=== PATIENT | male | born 1955 | race African-American/Black ===

== ENCOUNTER 2020-05-14 20:30 | Inpatient (IN) | payer OTHER ==
[~2020-05-14] VITALS: Ht 188 cm; Wt 68.7 kg
[2020-05-14] MEDS ORDERED: HYDRALAZINE 20MG/ML VIAL IV ONE (20:45)
[2020-05-14] MEDS ORDERED: PROPOFOL 10MG/ML 100ML 100 ML IV SCH (21:00)
[2020-05-14] MEDS ORDERED: LORAZEPAM 2MG/ML CPJ IV ONE (21:00)
[2020-05-14 21:03] LABS: BASOPHILS % 0.2 % (0.0-2.0); EOSINOPHILS % 0.1 % (0.0-5.0); HEMATOCRIT. 44.3 % (42.0-52.0); HEMOGLOBIN. 15.3 g/dL (14.0-18.0); LYMPHOCYTES % 8.7 % (20.0-50.0); MEAN CORPUSCULAR HEMOGLOBIN 29.5 pg (28.0-32.0); MEAN CORPUSCULAR VOLUME 85.4 fL (80.0-94.0); MEAN PLATELET VOLUME 8.4 fl (7.4-10.4); MONOCYTES % 4.8 % (2.0-8.0); NEUTROPHILS % 86.2 % (40.0-76.0); PLATELET 231 x1000/uL (130-400); RED BLOOD CELL COUNT 5.19 mill/uL (4.7-6.1); RED CELL DISTRIBUTION WIDTH 14.5 % (11.6-14.6)
[2020-05-14] MEDS ORDERED: PROPOFOL 10MG/ML 100ML 100 ML IV ONE (21:03)
[2020-05-14] MEDS ORDERED: LORAZEPAM 2MG/ML CPJ ONE (21:04)
[2020-05-14 21:10] LABS: CHLORIDE 99 mEq/L (98-107)
[2020-05-14 21:12] LABS: INR 0.9
[2020-05-14 21:14] LABS: ETHANOL BLOOD < 10 mg/dL
[2020-05-14 21:17] LABS: LDL CHOLESTEROL 243 mg/dL (5-100)
[2020-05-14] MEDS ORDERED: MANNITOL 12.5G (25%) VIAL 50ML IV NR (21:45)
[2020-05-14] MEDS ORDERED: NICARDIPINE 40MG/200ML PREMIX 200 ML IV PRN (21:45)
[2020-05-14 22:04] LABS: CLARITY URINE CLEAR (CLEAR); COLOR URINE YELLOW (YELLOW); KETONES URINE NEGATIVE (NEGATIVE); LEUKOCYTE ESTERASE URINE NEGATIVE (NEGATIVE); NITRITE URINE NEGATIVE (NEGATIVE); OCCULT BLOOD URINE 2+ (NEGATIVE); PROTEIN URINE 4+ (NEGATIVE); SPECIFIC GRAVITY URINE 1.015 (1.005-1.030); UROBILINOGEN URINE 0.2 E.U./dL (0.2-1.0)
[2020-05-14 22:14] LABS: *AMPHETAMINES SCREEN URINE NEGATIVE (NEGATIVE); *BARBITURATES SCREEN URINE NEGATIVE (NEGATIVE); *BENZODIAZEPINES SCREEN URINE NEGATIVE (NEGATIVE); *COCAINE SCREEN URINE NEGATIVE (NEGATIVE); METHADONE URINE SCREEN NEGATIVE (NEGATIVE); OPIATES URINE SCREEN NEGATIVE (NEGATIVE)
[2020-05-14 22:15] LABS: CANNABINOID URINE SCREEN PRESUMTIVE POSITIVE (NEGATIVE); PHENCYCLIDINE URINE SCREEN NEGATIVE (NEGATIVE)
[2020-05-14] MEDS ORDERED: MANNITOL 20% 62.5 ML IV SCH (22:15)
[2020-05-14] MEDS ORDERED: MORPHINE SULFATE 10 MG/ML CPJ IV ONE (22:15)
[2020-05-14 22:16] LABS: BG BASE EXCESS 3.3 mmol/L (-2.0-2.0); BG CARBOXYHEMOGLOBIN 0.5 % (0.5-1.5); BG DEOXYHEMOGLOBIN 0.4 % (0.0-5.0); BG FRACTION INSPIRED OXYGEN 100; BG HCO3 ACT 26.1 mmol/L (22.0-26.0); BG METHEMOGLOBIN 0.3 % (0.0-1.5); BG OXYGEN SATURATION 99.6 % (92.0-98.5); BG OXYHEMOGLOBIN 98.8 % (94.0-97.0); BG PCO2 34.6 mmHg (35.0-45.0); BG PH 7.495 (7.350-7.450); BG PO2 448.7 mmHg (75.0-100.0); BG SAMPLE SITE RIGHT RADIAL; BG TIDAL VOLUME(mL) 500 mL; BG TOTAL HEMOGLOBIN 16.3 g/dL (12.0-18.0); BG VENT MODE VENT - A/C; BG VENT RATE 16 set
[2020-05-14] MEDS ORDERED: LEVETIRACETAM 1000MG/100ML 100 ML IV ONE (23:00)
[2020-05-14] MEDS ORDERED: DEXAMETHASONE 4MG/ML 1ML VIAL IV ONE (23:00)
[2020-05-14] MEDS ORDERED: IOHEXOL-350 100 ML BOTTLE ONE (23:05)
[2020-05-15] VITALS (105 sets, daily range): BP systolic 106–167; BP diastolic 58–119
[2020-05-15] MEDS ORDERED: MORPHINE SULFATE 2 MG/ML CPJ (NOT FOR IM USE) IV PRN (01:00)
[2020-05-15] MEDS ORDERED: NICARDIPINE 100 MG in SODIUM CHLORIDE 0.9% 60 ML IV PRN (01:00)
[2020-05-15] MEDS ORDERED: MORPHINE SULFATE 2 MG/ML CPJ (NOT FOR IM USE) IV NR (01:15)
[2020-05-15] MEDS ORDERED: FUROSEMIDE 20MG/2ML VIAL IVP NR (01:30)
[2020-05-15] MEDS: CEFAZOLIN 1000MG PREMIX 50 ML IV SCH ×3 (02:10→18:49)
[2020-05-15] MEDS: DEXT 5%/LACTATED RINGERS 1,000 ML IV SCH ×2 (02:56→22:38)
[2020-05-15] MEDS: NICARDIPINE 100 MG in SODIUM CHLORIDE 0.9% 60 ML IV PRN ×3 (03:23→21:06)
[2020-05-15] MEDS: MORPHINE SULFATE 2 MG/ML CPJ (NOT FOR IM USE) IV PRN ×2 (03:24→22:10)
[2020-05-15] MEDS ORDERED: PROPOFOL 10MG/ML 100ML 100 ML IV PRN (04:15)
[2020-05-15] MEDS: PROPOFOL 10MG/ML 100ML 100 ML IV PRN ×3 (04:36→19:58)
[2020-05-15 04:56] LABS: HEMATOCRIT. 45.4 % (42.0-52.0); HEMOGLOBIN. 15.6 g/dL (14.0-18.0); MEAN CORPUSCULAR HEMOGLOBIN 29.2 pg (28.0-32.0); MEAN CORPUSCULAR VOLUME 85.2 fL (80.0-94.0); MEAN PLATELET VOLUME 8.7 fl (7.4-10.4); PLATELET 258 x1000/uL (130-400); RED BLOOD CELL COUNT 5.33 mill/uL (4.7-6.1)
[2020-05-15] MEDS ORDERED: GUAIFENESIN 200MG/10ML SUGAR FREE UDC PO PRN (05:30)
[2020-05-15] MEDS ORDERED: LORAZEPAM 2MG/ML CPJ IV PRN (05:30)
[2020-05-15] MEDS ORDERED: MAGNESIUM/ALUMINUM HYDROXIDE/SIMETHICONE 30ML UDC PO PRN (05:30)
[2020-05-15] MEDS ORDERED: HYDROCODONE/ACETAMINOPHEN 10/325MG TABLET PO PRN (05:30)
[2020-05-15] MEDS ORDERED: DOCUSATE SODIUM 100MG CAPSULE PO PRN (05:30)
[2020-05-15] MEDS ORDERED: SODIUM CHLORIDE 0.9% INJ 3ML FLUSH IVF SCH (06:00)
[2020-05-15 06:19] LABS: CHLORIDE 100 mEq/L (98-107)
[2020-05-15] MEDS ORDERED: KCL 20MEQ/100ML PREMIX 100 ML IV ONE (08:00)
[2020-05-15 08:20] LABS: BG BASE EXCESS 0.6 mmol/L (-2.0-2.0); BG CARBOXYHEMOGLOBIN 0.1 % (0.5-1.5); BG FRACTION INSPIRED OXYGEN 50; BG HCO3 ACT 24.3 mmol/L (22.0-26.0); BG METHEMOGLOBIN 0.7 % (0.0-1.5); BG OXYHEMOGLOBIN 98.2 % (94.0-97.0); BG PCO2 36.9 mmHg (35.0-45.0); BG PH 7.437 (7.350-7.450); BG PO2 212.2 mmHg (75.0-100.0); BG SAMPLE SITE RIGHT RADIAL; BG TIDAL VOLUME(mL) 500 mL; BG TOTAL HEMOGLOBIN 20.2 g/dL (12.0-18.0); BG VENT MODE VENT - A/C; BG VENT RATE 16 set
[2020-05-15] MEDS ORDERED: POTASSIUM CHLORIDE INJ 60 MEQ in DEXT 5% WATER 500 ML IV NR (09:00)
[2020-05-15] MEDS: LEVETIRACETAM 500MG PREMIX 100 ML IV SCH ×2 (09:15→20:10)
[2020-05-15 10:36] LABS: CREATINE KINASE MB FRACTION 2.7 ng/mL (0.5-3.6)
[2020-05-15] MEDS ORDERED: LEVETIRACETAM 500 MG in SODIUM CHLORIDE 0.9% 100 ML IV SCH (11:00)
[2020-05-15 13:39] LABS: PLATELET ESTIMATE NORMAL
[2020-05-15 17:16] LABS: CREATINE KINASE MB FRACTION 4.5 ng/mL (0.5-3.6)
[2020-05-16] VITALS (95 sets, daily range): BP systolic 101–148; BP diastolic 24–88
[2020-05-16] MEDS: CEFAZOLIN 1000MG PREMIX 50 ML IV SCH ×3 (01:15→17:32)
[2020-05-16] MEDS: PROPOFOL 10MG/ML 100ML 100 ML IV PRN ×5 (02:38→23:19)
[2020-05-16] MEDS: NICARDIPINE 100 MG in SODIUM CHLORIDE 0.9% 60 ML IV PRN ×3 (04:42→20:20)
[2020-05-16 05:52] LABS: HEMATOCRIT. 40.2 % (42.0-52.0); HEMOGLOBIN. 13.6 g/dL (14.0-18.0); MEAN CORPUSCULAR HEMOGLOBIN 29.2 pg (28.0-32.0); MEAN PLATELET VOLUME 9.4 fl (7.4-10.4); PLATELET 207 x1000/uL (130-400); RED BLOOD CELL COUNT 4.67 mill/uL (4.7-6.1)
[2020-05-16 05:55] LABS: CHLORIDE 104 mEq/L (98-107)
[2020-05-16] MEDS: LEVETIRACETAM 500MG PREMIX 100 ML IV SCH ×2 (08:46→20:20)
[2020-05-16] MEDS: PANTOPRAZOLE SODIUM 40 MG/VIAL IV SCH (08:46)
[2020-05-16 09:08] LABS: PLATELET ESTIMATE NORMAL
[2020-05-16 09:21] LABS: BG BASE EXCESS 1.5 mmol/L (-2.0-2.0); BG CARBOXYHEMOGLOBIN 0.2 % (0.5-1.5); BG DEOXYHEMOGLOBIN 2.3 % (0.0-5.0); BG FRACTION INSPIRED OXYGEN 35; BG HCO3 ACT 24.1 mmol/L (22.0-26.0); BG METHEMOGLOBIN 0.2 % (0.0-1.5); BG OXYGEN SATURATION 97.7 % (92.0-98.5); BG OXYHEMOGLOBIN 97.3 % (94.0-97.0); BG PH 7.495 (7.350-7.450); BG PO2 93.7 mmHg (75.0-100.0); BG SAMPLE SITE RIGHT RADIAL; BG TIDAL VOLUME(mL) 500 mL; BG TOTAL HEMOGLOBIN 13.6 g/dL (12.0-18.0); BG VENT MODE VENT - A/C; BG VENT RATE 14 set
[2020-05-16] MEDS: SODIUM CHLORIDE 0.9% 1,000 ML IV SCH (11:00)
[2020-05-16] MEDS: MORPHINE SULFATE 2 MG/ML CPJ (NOT FOR IM USE) IV PRN ×2 (18:55→21:07)
[2020-05-17] VITALS (99 sets, daily range): BP systolic 110–154; BP diastolic 53–88
[2020-05-17] MEDS: SODIUM CHLORIDE 0.9% 1,000 ML IV SCH ×2 (01:08→15:25)
[2020-05-17] MEDS: CEFAZOLIN 1000MG PREMIX 50 ML IV SCH ×3 (01:08→17:13)
[2020-05-17] MEDS: MORPHINE SULFATE 2 MG/ML CPJ (NOT FOR IM USE) IV PRN ×3 (01:43→06:42)
[2020-05-17] MEDS: NICARDIPINE 100 MG in SODIUM CHLORIDE 0.9% 60 ML IV PRN ×4 (03:43→23:58)
[2020-05-17] MEDS: PROPOFOL 10MG/ML 100ML 100 ML IV PRN ×5 (03:46→21:00)
[2020-05-17 04:56] LABS: BASOPHILS % 0.4 % (0.0-2.0); HEMATOCRIT. 39.7 % (42.0-52.0); HEMOGLOBIN. 13.5 g/dL (14.0-18.0); LYMPHOCYTES % 7.9 % (20.0-50.0); MEAN CORPUSCULAR HEMOGLOBIN 29.2 pg (28.0-32.0); MEAN CORPUSCULAR VOLUME 85.9 fL (80.0-94.0); MEAN PLATELET VOLUME 8.9 fl (7.4-10.4); MONOCYTES % 8.2 % (2.0-8.0); NEUTROPHILS % 83.5 % (40.0-76.0); PLATELET 199 x1000/uL (130-400); RED BLOOD CELL COUNT 4.62 mill/uL (4.7-6.1); RED CELL DISTRIBUTION WIDTH 14.6 % (11.6-14.6)
[2020-05-17 04:57] LABS: CHLORIDE 109 mEq/L (98-107)
[2020-05-17] MEDS: PANTOPRAZOLE SODIUM 40 MG/VIAL IV SCH (08:50)
[2020-05-17] MEDS: LEVETIRACETAM 500MG PREMIX 100 ML IV SCH ×2 (08:51→20:09)
[2020-05-17] MEDS ORDERED: MORPHINE SULFATE 4 MG/ML CPJ (NOT FOR IM USE) IV PRN (09:00)
[2020-05-17 09:10] LABS: BG BASE EXCESS 2.1 mmol/L (-2.0-2.0); BG CARBOXYHEMOGLOBIN 0.1 % (0.5-1.5); BG DEOXYHEMOGLOBIN 1.4 % (0.0-5.0); BG FRACTION INSPIRED OXYGEN 35; BG HCO3 ACT 26.6 mmol/L (22.0-26.0); BG METHEMOGLOBIN 0.3 % (0.0-1.5); BG OXYGEN SATURATION 98.6 % (92.0-98.5); BG OXYHEMOGLOBIN 98.2 % (94.0-97.0); BG PCO2 40.9 mmHg (35.0-45.0); BG PH 7.431 (7.350-7.450); BG PO2 134.8 mmHg (75.0-100.0); BG SAMPLE SITE LEFT RADIAL; BG TIDAL VOLUME(mL) 500 mL; BG TOTAL HEMOGLOBIN 14.1 g/dL (12.0-18.0); BG VENT MODE VENT - A/C; BG VENT RATE 14 set
[2020-05-17] MEDS: MORPHINE SULFATE 4 MG/ML CPJ (NOT FOR IM USE) IV PRN ×6 (09:12→23:55)
[2020-05-17] MEDS ORDERED: PHENYLEPHRINE 40 MG in DEXT 5% WATER 246 ML IV PRN (09:30)
[2020-05-17] MEDS ORDERED: SODIUM CHLORIDE 0.9% 500 ML IV SCH (10:30)
[2020-05-17] MEDS: IPRATROPIUM/ALBUTEROL 0.5-3(2.5)MG/3ML NEB HHN PRN ×3 (11:44→16:19)
[2020-05-17] MEDS ORDERED: MORPHINE SULFATE 2 MG/ML CPJ (NOT FOR IM USE) IV NR (14:30)
[2020-05-17] MEDS: HYDRALAZINE 20MG/ML VIAL IV PRN (14:43)
[2020-05-18] VITALS (96 sets, daily range): BP systolic 103–153; BP diastolic 60–87
[2020-05-18] MEDS: PROPOFOL 10MG/ML 100ML 100 ML IV PRN ×5 (00:25→21:31)
[2020-05-18] MEDS: CEFAZOLIN 1000MG PREMIX 50 ML IV SCH ×3 (01:14→18:21)
[2020-05-18] MEDS: MORPHINE SULFATE 4 MG/ML CPJ (NOT FOR IM USE) IV PRN ×5 (04:06→23:18)
[2020-05-18 04:51] LABS: HEMATOCRIT. 35.5 % (42.0-52.0); HEMOGLOBIN. 12.1 g/dL (14.0-18.0); MEAN CORPUSCULAR HEMOGLOBIN 29.6 pg (28.0-32.0); MEAN CORPUSCULAR VOLUME 86.3 fL (80.0-94.0); MEAN PLATELET VOLUME 8.9 fl (7.4-10.4); PLATELET 179 x1000/uL (130-400); RED BLOOD CELL COUNT 4.11 mill/uL (4.7-6.1); RED CELL DISTRIBUTION WIDTH 14.7 % (11.6-14.6)
[2020-05-18 04:54] LABS: CHLORIDE 111 mEq/L (98-107)
[2020-05-18] MEDS: NICARDIPINE 100 MG in SODIUM CHLORIDE 0.9% 60 ML IV PRN ×2 (06:48→13:08)
[2020-05-18] MEDS: LEVETIRACETAM 500MG PREMIX 100 ML IV SCH ×2 (08:17→20:11)
[2020-05-18] MEDS: SODIUM CHLORIDE 0.9% 1,000 ML IV SCH (08:17)
[2020-05-18] MEDS: PANTOPRAZOLE SODIUM 40 MG/VIAL IV SCH (08:17)
[2020-05-18 09:37] LABS: BG BASE EXCESS 0.7 mmol/L (-2.0-2.0); BG CARBOXYHEMOGLOBIN 0.3 % (0.5-1.5); BG DEOXYHEMOGLOBIN 1.9 % (0.0-5.0); BG FRACTION INSPIRED OXYGEN 35; BG HCO3 ACT 23.9 mmol/L (22.0-26.0); BG METHEMOGLOBIN 0.2 % (0.0-1.5); BG OXYGEN SATURATION 98.1 % (92.0-98.5); BG OXYHEMOGLOBIN 97.6 % (94.0-97.0); BG PCO2 33.6 mmHg (35.0-45.0); BG PO2 117.5 mmHg (75.0-100.0); BG SAMPLE SITE LEFT RADIAL; BG TIDAL VOLUME(mL) 500 mL; BG TOTAL HEMOGLOBIN 12.4 g/dL (12.0-18.0); BG VENT MODE VENT - A/C; BG VENT RATE 14 set
[2020-05-18 10:56] LABS: PLATELET ESTIMATE NORMAL
[2020-05-18] MEDS: PIPERACILLIN/TAZOBACTAM 3.375 G in DEXT 5% WATER 100 ML IV SCH ×3 (13:21→23:18)
[2020-05-18] MEDS: IPRATROPIUM/ALBUTEROL 0.5-3(2.5)MG/3ML NEB HHN PRN ×2 (19:52→19:54)
[2020-05-19] VITALS (99 sets, daily range): BP systolic 102–153; BP diastolic 19–92
[2020-05-19] MEDS: CEFAZOLIN 1000MG PREMIX 50 ML IV SCH ×3 (01:22→18:00)
[2020-05-19] MEDS: NICARDIPINE 100 MG in SODIUM CHLORIDE 0.9% 60 ML IV PRN ×3 (02:10→18:01)
[2020-05-19] MEDS: SODIUM CHLORIDE 0.9% 1,000 ML IV SCH ×3 (02:11→20:39)
[2020-05-19] MEDS: PROPOFOL 10MG/ML 100ML 100 ML IV PRN ×4 (02:12→20:40)
[2020-05-19] MEDS: MORPHINE SULFATE 4 MG/ML CPJ (NOT FOR IM USE) IV PRN ×7 (02:23→20:41)
[2020-05-19] MEDS: PIPERACILLIN/TAZOBACTAM 3.375 G in DEXT 5% WATER 100 ML IV SCH ×4 (05:18→23:15)
[2020-05-19 05:25] LABS: BASOPHILS % 0.4 % (0.0-2.0); HEMATOCRIT. 37.3 % (42.0-52.0); HEMOGLOBIN. 12.8 g/dL (14.0-18.0); LYMPHOCYTES % 7.3 % (20.0-50.0); MEAN CORPUSCULAR HEMOGLOBIN 29.7 pg (28.0-32.0); MEAN CORPUSCULAR VOLUME 86.5 fL (80.0-94.0); MEAN PLATELET VOLUME 8.8 fl (7.4-10.4); MONOCYTES % 9.2 % (2.0-8.0); NEUTROPHILS % 83.1 % (40.0-76.0); PLATELET 169 x1000/uL (130-400); RED BLOOD CELL COUNT 4.31 mill/uL (4.7-6.1); RED CELL DISTRIBUTION WIDTH 14.8 % (11.6-14.6)
[2020-05-19 05:30] LABS: CHLORIDE 113 mEq/L (98-107)
[2020-05-19 07:57] LABS: BG BASE EXCESS -1.4 mmol/L (-2.0-2.0); BG CARBOXYHEMOGLOBIN 0.3 % (0.5-1.5); BG DEOXYHEMOGLOBIN 3.2 % (0.0-5.0); BG FRACTION INSPIRED OXYGEN 35; BG HCO3 ACT 22.5 mmol/L (22.0-26.0); BG METHEMOGLOBIN 0.2 % (0.0-1.5); BG OXYGEN SATURATION 96.8 % (92.0-98.5); BG OXYHEMOGLOBIN 96.3 % (94.0-97.0); BG PCO2 35.1 mmHg (35.0-45.0); BG PH 7.425 (7.350-7.450); BG PO2 90.5 mmHg (75.0-100.0); BG SAMPLE SITE RIGHT RADIAL; BG TIDAL VOLUME(mL) 500 mL; BG TOTAL HEMOGLOBIN 12.3 g/dL (12.0-18.0); BG VENT MODE VENT - A/C; BG VENT RATE 12 set
[2020-05-19] MEDS: LEVETIRACETAM 500MG PREMIX 100 ML IV SCH ×2 (08:12→20:15)
[2020-05-19] MEDS: PANTOPRAZOLE SODIUM 40 MG/VIAL IV SCH (08:12)
[2020-05-19] MEDS ORDERED: KCL 20MEQ/100ML PREMIX 100 ML IV NR (10:00)
[2020-05-19] MEDS: IPRATROPIUM/ALBUTEROL 0.5-3(2.5)MG/3ML NEB HHN PRN (21:00)
[2020-05-19] MEDS: HYDRALAZINE 20MG/ML VIAL IV PRN (23:27)
[2020-05-20] VITALS (100 sets, daily range): BP systolic 103–202; BP diastolic 51–136
[2020-05-20] MEDS: MORPHINE SULFATE 4 MG/ML CPJ (NOT FOR IM USE) IV PRN ×6 (00:24→21:26)
[2020-05-20] MEDS ORDERED: ACETAMINOPHEN 650MG SUPP PR PRN (00:45)
[2020-05-20] MEDS: CEFAZOLIN 1000MG PREMIX 50 ML IV SCH (01:14)
[2020-05-20] MEDS: NICARDIPINE 100 MG in SODIUM CHLORIDE 0.9% 60 ML IV PRN ×2 (01:19→10:19)
[2020-05-20] MEDS: PROPOFOL 10MG/ML 100ML 100 ML IV PRN ×5 (01:21→19:13)
[2020-05-20] MEDS: IPRATROPIUM/ALBUTEROL 0.5-3(2.5)MG/3ML NEB HHN PRN ×2 (04:31→08:51)
[2020-05-20 05:30] LABS: BASOPHILS % 0.6 % (0.0-2.0); EOSINOPHILS % 0.1 % (0.0-5.0); HEMATOCRIT. 36.8 % (42.0-52.0); HEMOGLOBIN. 12.5 g/dL (14.0-18.0); LYMPHOCYTES % 9.5 % (20.0-50.0); MEAN CORPUSCULAR HEMOGLOBIN 29.6 pg (28.0-32.0); MEAN CORPUSCULAR VOLUME 86.9 fL (80.0-94.0); MEAN PLATELET VOLUME 9.3 fl (7.4-10.4); MONOCYTES % 10.5 % (2.0-8.0); NEUTROPHILS % 79.3 % (40.0-76.0); PLATELET 161 x1000/uL (130-400); RED BLOOD CELL COUNT 4.23 mill/uL (4.7-6.1); RED CELL DISTRIBUTION WIDTH 14.5 % (11.6-14.6)
[2020-05-20 05:38] LABS: CHLORIDE 115 mEq/L (98-107)
[2020-05-20] MEDS: PIPERACILLIN/TAZOBACTAM 3.375 G in DEXT 5% WATER 100 ML IV SCH ×4 (05:55→23:55)
[2020-05-20] MEDS: LEVETIRACETAM 500MG PREMIX 100 ML IV SCH ×2 (08:50→20:36)
[2020-05-20] MEDS: PANTOPRAZOLE SODIUM 40 MG/VIAL IV SCH (08:50)
[2020-05-20] MEDS: HYDRALAZINE 20MG/ML VIAL IV PRN ×2 (09:19→14:16)
[2020-05-20] MEDS ORDERED: POTASSIUM CHLORIDE INJ 40 MEQ in DEXT 5% WATER 250 ML IV NR (11:00)
[2020-05-20] MEDS ORDERED: MORPHINE SULFATE 2 MG/ML CPJ (NOT FOR IM USE) IV NR (13:15)
[2020-05-20] MEDS: SODIUM CHLORIDE 0.9% 1,000 ML IV SCH (13:30)
[2020-05-20] MEDS: ATORVASTATIN CALCIUM 40MG TABLET PO SCH (20:36)
[2020-05-21] VITALS (98 sets, daily range): BP systolic 111–158; BP diastolic 56–95
[2020-05-21] MEDS: PROPOFOL 10MG/ML 100ML 100 ML IV PRN ×7 (00:09→22:58)
[2020-05-21] MEDS: NICARDIPINE 100 MG in SODIUM CHLORIDE 0.9% 60 ML IV PRN ×4 (01:15→22:40)
[2020-05-21] MEDS: MORPHINE SULFATE 4 MG/ML CPJ (NOT FOR IM USE) IV PRN ×7 (02:17→20:56)
[2020-05-21] MEDS: HYDRALAZINE 20MG/ML VIAL IV PRN ×4 (03:27→22:25)
[2020-05-21] MEDS: SODIUM CHLORIDE 0.9% 1,000 ML IV SCH ×2 (05:00→15:05)
[2020-05-21 05:31] LABS: BASOPHILS % 0.8 % (0.0-2.0); EOSINOPHILS % 0.1 % (0.0-5.0); HEMOGLOBIN. 12.4 g/dL (14.0-18.0); LYMPHOCYTES % 9.6 % (20.0-50.0); MEAN CORPUSCULAR HEMOGLOBIN 29.7 pg (28.0-32.0); MEAN CORPUSCULAR VOLUME 86.3 fL (80.0-94.0); MEAN PLATELET VOLUME 8.9 fl (7.4-10.4); MONOCYTES % 9.4 % (2.0-8.0); NEUTROPHILS % 80.1 % (40.0-76.0); PLATELET 166 x1000/uL (130-400); RED BLOOD CELL COUNT 4.17 mill/uL (4.7-6.1); RED CELL DISTRIBUTION WIDTH 14.4 % (11.6-14.6)
[2020-05-21 05:35] LABS: CHLORIDE 118 mEq/L (98-107)
[2020-05-21] MEDS: PIPERACILLIN/TAZOBACTAM 3.375 G in DEXT 5% WATER 100 ML IV SCH ×3 (05:39→16:44)
[2020-05-21 07:28] LABS: BG BASE EXCESS -2.4 mmol/L (-2.0-2.0); BG CARBOXYHEMOGLOBIN 0.3 % (0.5-1.5); BG DEOXYHEMOGLOBIN 2.1 % (0.0-5.0); BG FRACTION INSPIRED OXYGEN 50; BG HCO3 ACT 20.7 mmol/L (22.0-26.0); BG METHEMOGLOBIN 0.2 % (0.0-1.5); BG OXYGEN SATURATION 97.9 % (92.0-98.5); BG OXYHEMOGLOBIN 97.4 % (94.0-97.0); BG PCO2 30.4 mmHg (35.0-45.0); BG PO2 109.2 mmHg (75.0-100.0); BG SAMPLE SITE RIGHT RADIAL; BG TIDAL VOLUME(mL) 500 mL; BG TOTAL HEMOGLOBIN 12.6 g/dL (12.0-18.0); BG VENT MODE VENT - A/C; BG VENT RATE 12 set
[2020-05-21] MEDS: IPRATROPIUM/ALBUTEROL 0.5-3(2.5)MG/3ML NEB HHN PRN ×2 (08:17→16:12)
[2020-05-21] MEDS: PANTOPRAZOLE SODIUM 40 MG/VIAL IV SCH (08:37)
[2020-05-21] MEDS: LEVETIRACETAM 500MG PREMIX 100 ML IV SCH ×2 (08:38→20:55)
[2020-05-21] MEDS ORDERED: METOPROLOL TARTRATE 50MG TABLET PO SCH (11:30)
[2020-05-21] MEDS: METOPROLOL TARTRATE 50MG TABLET NG SCH ×2 (11:57→20:55)
[2020-05-21] MEDS: DEXTROSE 5% WATER 1,000 ML IV SCH (16:23)
[2020-05-21] MEDS: ATORVASTATIN CALCIUM 40MG TABLET PO SCH (20:55)
[2020-05-22] VITALS (96 sets, daily range): BP systolic 106–161; BP diastolic 65–92
[2020-05-22] MEDS: PIPERACILLIN/TAZOBACTAM 3.375 G in DEXT 5% WATER 100 ML IV SCH ×4 (00:06→17:15)
[2020-05-22] MEDS: MORPHINE SULFATE 4 MG/ML CPJ (NOT FOR IM USE) IV PRN ×2 (01:45→06:09)
[2020-05-22] MEDS: HYDRALAZINE 20MG/ML VIAL IV PRN ×2 (02:27→09:08)
[2020-05-22] MEDS: PROPOFOL 10MG/ML 100ML 100 ML IV PRN ×4 (04:05→23:11)
[2020-05-22] MEDS: NICARDIPINE 100 MG in SODIUM CHLORIDE 0.9% 60 ML IV PRN ×3 (05:59→20:07)
[2020-05-22] MEDS: LEVETIRACETAM 500MG PREMIX 100 ML IV SCH ×2 (08:20→20:06)
[2020-05-22] MEDS: PANTOPRAZOLE SODIUM 40 MG/VIAL IV SCH (08:20)
[2020-05-22] MEDS: METOPROLOL TARTRATE 50MG TABLET NG SCH ×2 (08:21→20:06)
[2020-05-22] MEDS: DEXTROSE 5% WATER 1,000 ML IV SCH (08:25)
[2020-05-22] MEDS ORDERED: DOCUSATE SODIUM SUGAR FREE 100MG/10ML UDC NG SCH (09:00)
[2020-05-22] MEDS: SODIUM CHLORIDE 0.45% 1,000 ML IV SCH (11:37)
[2020-05-22] MEDS ORDERED: AMLODIPINE 5MG TABLET PO SCH (11:45)
[2020-05-22] MEDS: AMLODIPINE 5MG TABLET PO SCH ×2 (11:53→20:06)
[2020-05-22] MEDS: ACETAMINOPHEN 325MG TABLET PO PRN (20:06)
[2020-05-22] MEDS: ATORVASTATIN CALCIUM 40MG TABLET PO SCH (20:06)
[2020-05-23] VITALS (96 sets, daily range): BP systolic 119–180; BP diastolic 58–119
[2020-05-23] MEDS: PIPERACILLIN/TAZOBACTAM 3.375 G in DEXT 5% WATER 100 ML IV SCH ×4 (00:51→17:46)
[2020-05-23] MEDS: SODIUM CHLORIDE 0.45% 1,000 ML IV SCH ×2 (00:51→14:05)
[2020-05-23] MEDS: PROPOFOL 10MG/ML 100ML 100 ML IV PRN ×5 (03:00→20:13)
[2020-05-23] MEDS: NICARDIPINE 100 MG in SODIUM CHLORIDE 0.9% 60 ML IV PRN ×3 (03:29→20:14)
[2020-05-23 05:36] LABS: BASOPHILS % 0.6 % (0.0-2.0); EOSINOPHILS % 0.2 % (0.0-5.0); HEMATOCRIT. 36.2 % (42.0-52.0); HEMOGLOBIN. 12.5 g/dL (14.0-18.0); LYMPHOCYTES % 8.6 % (20.0-50.0); MEAN CORPUSCULAR HEMOGLOBIN 29.5 pg (28.0-32.0); MEAN CORPUSCULAR VOLUME 85.5 fL (80.0-94.0); MEAN PLATELET VOLUME 9.7 fl (7.4-10.4); MONOCYTES % 11.4 % (2.0-8.0); NEUTROPHILS % 79.2 % (40.0-76.0); PLATELET 164 x1000/uL (130-400); RED BLOOD CELL COUNT 4.24 mill/uL (4.7-6.1); RED CELL DISTRIBUTION WIDTH 14.3 % (11.6-14.6)
[2020-05-23 05:40] LABS: CHLORIDE 116 mEq/L (98-107)
[2020-05-23] MEDS: HYDRALAZINE 20MG/ML VIAL IV PRN (06:32)
[2020-05-23] MEDS: MORPHINE SULFATE 4 MG/ML CPJ (NOT FOR IM USE) IV PRN (07:57)
[2020-05-23 08:42] LABS: BG BASE EXCESS -0.4 mmol/L (-2.0-2.0); BG CARBOXYHEMOGLOBIN 0.3 % (0.5-1.5); BG DEOXYHEMOGLOBIN 9.6 % (0.0-5.0); BG FRACTION INSPIRED OXYGEN 40; BG METHEMOGLOBIN 0.3 % (0.0-1.5); BG OXYGEN SATURATION 90.3 % (92.0-98.5); BG OXYHEMOGLOBIN 89.8 % (94.0-97.0); BG PH 7.526 (7.350-7.450); BG PO2 52.5 mmHg (75.0-100.0); BG SAMPLE SITE RIGHT RADIAL; BG TIDAL VOLUME(mL) 500 mL; BG VENT MODE VENT - A/C; BG VENT RATE 12 set
[2020-05-23] MEDS: DOCUSATE SODIUM SUGAR FREE 100MG/10ML UDC NG SCH (09:30)
[2020-05-23] MEDS: AMLODIPINE 5MG TABLET PO SCH ×2 (09:31→20:18)
[2020-05-23] MEDS: PANTOPRAZOLE SODIUM 40 MG/VIAL IV SCH (09:32)
[2020-05-23] MEDS: LEVETIRACETAM 500MG PREMIX 100 ML IV SCH ×2 (09:32→20:16)
[2020-05-23] MEDS: METOPROLOL TARTRATE 50MG TABLET NG SCH ×2 (09:32→20:19)
[2020-05-23] MEDS: ATORVASTATIN CALCIUM 40MG TABLET PO SCH (20:18)
[2020-05-24] VITALS (91 sets, daily range): BP systolic 100–160; BP diastolic 67–97
[2020-05-24] MEDS: PROPOFOL 10MG/ML 100ML 100 ML IV PRN ×5 (00:50→19:08)
[2020-05-24] MEDS: NICARDIPINE 100 MG in SODIUM CHLORIDE 0.9% 60 ML IV PRN ×3 (04:17→19:05)
[2020-05-24] MEDS: SODIUM CHLORIDE 0.45% 1,000 ML IV SCH ×2 (05:00→16:35)
[2020-05-24] MEDS: IPRATROPIUM/ALBUTEROL 0.5-3(2.5)MG/3ML NEB HHN PRN (08:10)
[2020-05-24] MEDS: AMLODIPINE 5MG TABLET PO SCH (08:24)
[2020-05-24] MEDS: METOPROLOL TARTRATE 50MG TABLET NG SCH ×2 (08:24→21:27)
[2020-05-24] MEDS: DOCUSATE SODIUM SUGAR FREE 100MG/10ML UDC NG SCH (08:24)
[2020-05-24] MEDS: LEVETIRACETAM 500MG PREMIX 100 ML IV SCH ×2 (08:25→21:26)
[2020-05-24] MEDS ORDERED: FOLIC ACID 1MG TABLET PO SCH (09:00)
[2020-05-24] MEDS ORDERED: THIAMINE HCL 100MG TABLET PO SCH (09:00)
[2020-05-24] MEDS ORDERED: MAGNESIUM/ALUMINUM HYDROXIDE/SIMETHICONE 30ML UDC NG PRN (09:05)
[2020-05-24] MEDS ORDERED: GUAIFENESIN 200MG/10ML SUGAR FREE UDC NG PRN (09:05)
[2020-05-24] MEDS ORDERED: POTASSIUM CHLORIDE INJ 40 MEQ in DEXT 5% WATER 250 ML IV SCH (14:00)
[2020-05-24 17:38] LABS: BG BASE EXCESS -0.1 mmol/L (-2.0-2.0); BG CARBOXYHEMOGLOBIN 0.3 % (0.5-1.5); BG METHEMOGLOBIN 0.2 % (0.0-1.5); BG OXYHEMOGLOBIN 93.5 % (94.0-97.0); BG PCO2 28.5 mmHg (35.0-45.0); BG PH 7.505 (7.350-7.450); BG PO2 67.6 mmHg (75.0-100.0); BG SAMPLE SITE RIGHT RADIAL; BG TIDAL VOLUME(mL) 500 mL; BG TOTAL HEMOGLOBIN 12.9 g/dL (12.0-18.0); BG VENT MODE VENT - A/C; BG VENT RATE 12 set
[2020-05-24] MEDS: ATORVASTATIN CALCIUM 40MG TABLET NG SCH (21:26)
[2020-05-24] MEDS: RISPERIDONE 0.5MG TABLET PO SCH (21:26)
[2020-05-24] MEDS: MORPHINE SULFATE 4 MG/ML CPJ (NOT FOR IM USE) IV PRN (21:37)
[2020-05-24] MEDS: AMLODIPINE 5MG TABLET NG SCH (21:40)
[2020-05-25] VITALS (85 sets, daily range): BP systolic 109–174; BP diastolic 70–117
[2020-05-25] MEDS: PROPOFOL 10MG/ML 100ML 100 ML IV PRN ×2 (00:23→04:50)
[2020-05-25] MEDS: NICARDIPINE 100 MG in SODIUM CHLORIDE 0.9% 60 ML IV PRN ×3 (02:32→16:31)
[2020-05-25] MEDS: SODIUM CHLORIDE 0.45% 1,000 ML IV SCH ×2 (03:47→17:14)
[2020-05-25] MEDS: DOCUSATE SODIUM SUGAR FREE 100MG/10ML UDC NG SCH (08:11)
[2020-05-25] MEDS: METOPROLOL TARTRATE 50MG TABLET NG SCH ×2 (08:12→21:23)
[2020-05-25] MEDS: RISPERIDONE 0.5MG TABLET PO SCH ×2 (08:12→21:24)
[2020-05-25] MEDS: FOLIC ACID 1MG TABLET NG SCH (08:12)
[2020-05-25] MEDS: THIAMINE HCL 100MG TABLET NG SCH (08:12)
[2020-05-25] MEDS: AMLODIPINE 5MG TABLET NG SCH (08:13)
[2020-05-25] MEDS: LEVETIRACETAM 500MG PREMIX 100 ML IV SCH ×2 (08:13→21:23)
[2020-05-25] MEDS ORDERED: AMLODIPINE 5MG TABLET PO NR (08:45)
[2020-05-25 08:49] LABS: BG BASE EXCESS -0.3 mmol/L (-2.0-2.0); BG CARBOXYHEMOGLOBIN 0.3 % (0.5-1.5); BG DEOXYHEMOGLOBIN 5.6 % (0.0-5.0); BG FRACTION INSPIRED OXYGEN 40; BG HCO3 ACT 21.6 mmol/L (22.0-26.0); BG METHEMOGLOBIN 0.2 % (0.0-1.5); BG OXYGEN SATURATION 94.4 % (92.0-98.5); BG OXYHEMOGLOBIN 93.9 % (94.0-97.0); BG PCO2 27.5 mmHg (35.0-45.0); BG PH 7.512 (7.350-7.450); BG SAMPLE SITE RIGHT RADIAL; BG TIDAL VOLUME(mL) 500 mL; BG TOTAL HEMOGLOBIN 12.4 g/dL (12.0-18.0); BG VENT MODE VENT - A/C; BG VENT RATE 12 set
[2020-05-25] MEDS: MORPHINE SULFATE 4 MG/ML CPJ (NOT FOR IM USE) IV PRN ×2 (09:54→18:07)
[2020-05-25 11:10] LABS: HEMATOCRIT. 33.6 % (42.0-52.0); HEMOGLOBIN. 11.4 g/dL (14.0-18.0); MEAN CORPUSCULAR HEMOGLOBIN 28.9 pg (28.0-32.0); MEAN CORPUSCULAR VOLUME 84.9 fL (80.0-94.0); MEAN PLATELET VOLUME 10.8 fl (7.4-10.4); PLATELET 191 x1000/uL (130-400); RED BLOOD CELL COUNT 3.95 mill/uL (4.7-6.1); RED CELL DISTRIBUTION WIDTH 14.3 % (11.6-14.6)
[2020-05-25 11:19] LABS: BG BASE EXCESS -2.8 mmol/L (-2.0-2.0); BG CARBOXYHEMOGLOBIN 0.3 % (0.5-1.5); BG DEOXYHEMOGLOBIN 4.8 % (0.0-5.0); BG FRACTION INSPIRED OXYGEN 40; BG HCO3 ACT 19.2 mmol/L (22.0-26.0); BG METHEMOGLOBIN 0.2 % (0.0-1.5); BG OXYGEN SATURATION 95.2 % (92.0-98.5); BG OXYHEMOGLOBIN 94.7 % (94.0-97.0); BG PCO2 24.9 mmHg (35.0-45.0); BG PH 7.505 (7.350-7.450); BG PO2 73.7 mmHg (75.0-100.0); BG PRESSURE SUPPORT 8; BG SAMPLE SITE RIGHT RADIAL; BG TOTAL HEMOGLOBIN 10.3 g/dL (12.0-18.0); BG VENT MODE MASK - CPAP
[2020-05-25 11:38] LABS: CHLORIDE 111 mEq/L (98-107)
[2020-05-25 11:44] LABS: PLATELET ESTIMATE NORMAL
[2020-05-25] MEDS ORDERED: POTASSIUM CHLORIDE 20MEQ TABLET SR PO NR (12:00)
[2020-05-25] MEDS: LORAZEPAM 2MG/ML CPJ IV PRN (14:38)
[2020-05-25] MEDS: HYDRALAZINE 20MG/ML VIAL IV PRN (15:45)
[2020-05-25] MEDS ORDERED: AMLODIPINE 10MG TABLET NG SCH (21:00)
[2020-05-25] MEDS: AMLODIPINE 10MG TABLET NG SCH (21:23)
[2020-05-25] MEDS: ATORVASTATIN CALCIUM 40MG TABLET NG SCH (21:23)
[2020-05-25] MEDS: DIPHENHYDRAMINE 50MG/ML VIAL IV PRN (23:15)
[2020-05-26] VITALS (86 sets, daily range): BP systolic 99–177; BP diastolic 59–96
[2020-05-26] MEDS: NICARDIPINE 100 MG in SODIUM CHLORIDE 0.9% 60 ML IV PRN ×3 (00:16→15:30)
[2020-05-26] MEDS: ACETAMINOPHEN 325MG TABLET PO PRN (04:37)
[2020-05-26] MEDS: HYDRALAZINE 20MG/ML VIAL IV PRN (05:30)
[2020-05-26 06:38] LABS: HEMATOCRIT. 32.3 % (42.0-52.0); MEAN CORPUSCULAR HEMOGLOBIN 29.1 pg (28.0-32.0); MEAN CORPUSCULAR VOLUME 85.1 fL (80.0-94.0); MEAN PLATELET VOLUME 10.6 fl (7.4-10.4); PLATELET 200 x1000/uL (130-400); RED CELL DISTRIBUTION WIDTH 14.1 % (11.6-14.6)
[2020-05-26 06:44] LABS: CHLORIDE 111 mEq/L (98-107)
[2020-05-26] MEDS: LORAZEPAM 2MG/ML CPJ IV PRN (07:33)
[2020-05-26] MEDS ORDERED: POTASSIUM CHLORIDE 20MEQ TABLET SR PO SCH ×2 (09:15→16:00)
[2020-05-26] MEDS: LEVETIRACETAM 500MG PREMIX 100 ML IV SCH (09:22)
[2020-05-26] MEDS: SODIUM CHLORIDE 0.45% 1,000 ML IV SCH ×2 (09:23→21:07)
[2020-05-26] MEDS: FOLIC ACID 1MG TABLET NG SCH (09:24)
[2020-05-26] MEDS: DOCUSATE SODIUM SUGAR FREE 100MG/10ML UDC NG SCH (09:24)
[2020-05-26] MEDS: METOPROLOL TARTRATE 50MG TABLET NG SCH (09:25)
[2020-05-26] MEDS: AMLODIPINE 10MG TABLET NG SCH ×2 (09:26→21:06)
[2020-05-26] MEDS: RISPERIDONE 0.5MG TABLET PO SCH ×2 (09:26→21:05)
[2020-05-26] MEDS: THIAMINE HCL 100MG TABLET NG SCH (09:26)
[2020-05-26 10:57] LABS: PLATELET ESTIMATE NORMAL
[2020-05-26] MEDS: METOPROLOL TARTRATE 100MG TABLET NG SCH ×2 (16:43→21:06)
[2020-05-26] MEDS: LISINOPRIL 10MG TABLET PO SCH ×2 (16:43→21:07)
[2020-05-26] MEDS: ATORVASTATIN CALCIUM 40MG TABLET NG SCH (21:06)
[2020-05-26] MEDS: LEVETIRACETAM 500MG TABLET PO SCH (21:06)
[2020-05-27] VITALS (48 sets, daily range): BP systolic 119–181; BP diastolic 70–130
[2020-05-27 06:47] LABS: HEMOGLOBIN. 12.1 g/dL (14.0-18.0); MEAN CORPUSCULAR HEMOGLOBIN 30.2 pg (28.0-32.0); MEAN CORPUSCULAR VOLUME 85.2 fL (80.0-94.0); MEAN PLATELET VOLUME 10.6 fl (7.4-10.4); PLATELET 237 x1000/uL (130-400); RED BLOOD CELL COUNT 3.99 mill/uL (4.7-6.1); RED CELL DISTRIBUTION WIDTH 14.1 % (11.6-14.6)
[2020-05-27 06:49] LABS: CHLORIDE 111 mEq/L (98-107)
[2020-05-27] MEDS: RISPERIDONE 0.5MG TABLET PO SCH ×2 (08:37→20:24)
[2020-05-27] MEDS: FOLIC ACID 1MG TABLET NG SCH (08:38)
[2020-05-27] MEDS: AMLODIPINE 10MG TABLET NG SCH ×2 (08:38→20:24)
[2020-05-27] MEDS: LEVETIRACETAM 500MG TABLET PO SCH ×2 (08:38→20:24)
[2020-05-27] MEDS: LISINOPRIL 10MG TABLET PO SCH ×2 (08:38→20:24)
[2020-05-27] MEDS: METOPROLOL TARTRATE 100MG TABLET NG SCH ×2 (08:38→20:24)
[2020-05-27] MEDS: DOCUSATE SODIUM SUGAR FREE 100MG/10ML UDC NG SCH (08:39)
[2020-05-27 09:08] LABS: PLATELET ESTIMATE NORMAL
[2020-05-27] MEDS: SODIUM CHLORIDE 0.45% 1,000 ML IV SCH ×2 (12:07→13:05)
[2020-05-27] MEDS: ATORVASTATIN CALCIUM 40MG TABLET NG SCH (20:24)
[2020-05-28] VITALS (35 sets, daily range): BP systolic 120–180; BP diastolic 74–127
[2020-05-28] MEDS: SODIUM CHLORIDE 0.45% 1,000 ML IV SCH ×2 (00:06→12:57)
[2020-05-28] MEDS: DIPHENHYDRAMINE 50MG/ML VIAL IV PRN (01:12)
[2020-05-28] MEDS: LORAZEPAM 2MG/ML CPJ IV PRN (03:10)
[2020-05-28 06:54] LABS: CHLORIDE 107 mEq/L (98-107)
[2020-05-28 06:59] LABS: BASOPHILS % 0.6 % (0.0-2.0); EOSINOPHILS % 0.4 % (0.0-5.0); HEMATOCRIT. 33.2 % (42.0-52.0); HEMOGLOBIN. 11.3 g/dL (14.0-18.0); LYMPHOCYTES % 7.5 % (20.0-50.0); MEAN CORPUSCULAR HEMOGLOBIN 29.3 pg (28.0-32.0); MEAN CORPUSCULAR VOLUME 85.7 fL (80.0-94.0); MEAN PLATELET VOLUME 10.4 fl (7.4-10.4); NEUTROPHILS % 80.5 % (40.0-76.0); PLATELET 274 x1000/uL (130-400); RED BLOOD CELL COUNT 3.88 mill/uL (4.7-6.1); RED CELL DISTRIBUTION WIDTH 13.8 % (11.6-14.6)
[2020-05-28] MEDS: DOCUSATE SODIUM SUGAR FREE 100MG/10ML UDC NG SCH (09:36)
[2020-05-28] MEDS: LEVETIRACETAM 500MG TABLET PO SCH ×2 (09:36→20:17)
[2020-05-28] MEDS: RISPERIDONE 0.5MG TABLET PO SCH ×2 (09:37→20:16)
[2020-05-28] MEDS: LISINOPRIL 10MG TABLET PO SCH ×2 (09:37→21:00)
[2020-05-28] MEDS: AMLODIPINE 10MG TABLET NG SCH ×2 (09:37→20:16)
[2020-05-28] MEDS: METOPROLOL TARTRATE 100MG TABLET NG SCH ×2 (09:37→20:17)
[2020-05-28] MEDS: IPRATROPIUM/ALBUTEROL 0.5-3(2.5)MG/3ML NEB HHN PRN (09:58)
[2020-05-28] MEDS ORDERED: POTASSIUM CHLORIDE 20MEQ TABLET SR PO NR (10:00)
[2020-05-28] MEDS ORDERED: POTASSIUM CHLORIDE INJ 40 MEQ in DEXT 5% WATER 250 ML IV SCH (12:00)
[2020-05-28] MEDS: ATORVASTATIN CALCIUM 40MG TABLET NG SCH (20:17)
[2020-05-29] VITALS (12 sets, daily range): BP systolic 123–150; BP diastolic 82–104
[2020-05-29] MEDS: LORAZEPAM 2MG/ML CPJ IV PRN ×2 (02:06→13:23)
[2020-05-29 06:03] LABS: CHLORIDE 108 mEq/L (98-107)
[2020-05-29 06:08] LABS: BASOPHILS % 0.5 % (0.0-2.0); EOSINOPHILS % 0.6 % (0.0-5.0); HEMATOCRIT. 33.5 % (42.0-52.0); HEMOGLOBIN. 11.4 g/dL (14.0-18.0); LYMPHOCYTES % 9.3 % (20.0-50.0); MEAN CORPUSCULAR HEMOGLOBIN 28.9 pg (28.0-32.0); MEAN CORPUSCULAR VOLUME 84.5 fL (80.0-94.0); MEAN PLATELET VOLUME 10.2 fl (7.4-10.4); MONOCYTES % 10.7 % (2.0-8.0); NEUTROPHILS % 78.9 % (40.0-76.0); PLATELET 316 x1000/uL (130-400); RED BLOOD CELL COUNT 3.96 mill/uL (4.7-6.1); RED CELL DISTRIBUTION WIDTH 13.8 % (11.6-14.6)
[2020-05-29] MEDS: AMLODIPINE 10MG TABLET NG SCH ×2 (08:51→20:55)
[2020-05-29] MEDS: LEVETIRACETAM 500MG TABLET PO SCH ×2 (08:51→20:54)
[2020-05-29] MEDS: RISPERIDONE 0.5MG TABLET PO SCH ×2 (08:51→20:55)
[2020-05-29] MEDS: METOPROLOL TARTRATE 100MG TABLET NG SCH ×2 (08:51→20:56)
[2020-05-29] MEDS: DOCUSATE SODIUM SUGAR FREE 100MG/10ML UDC NG SCH (08:52)
[2020-05-29] MEDS: LISINOPRIL 10MG TABLET PO SCH ×2 (08:52→20:55)
[2020-05-29] MEDS ORDERED: POTASSIUM CHLORIDE 20MEQ TABLET SR PO NR (09:30)
[2020-05-29] MEDS ORDERED: KCL 20MEQ/100ML PREMIX 100 ML IV NR (10:30)
[2020-05-29] MEDS: SODIUM CHLORIDE 0.45% 1,000 ML IV SCH ×2 (16:27→16:33)
[2020-05-29] MEDS: ATORVASTATIN CALCIUM 40MG TABLET NG SCH (20:55)
[2020-05-29] MEDS: DIPHENHYDRAMINE 50MG/ML VIAL IV PRN (22:01)
[2020-05-30] VITALS (12 sets, daily range): BP systolic 122–158; BP diastolic 66–112
[2020-05-30 06:25] LABS: BASOPHILS % 0.4 % (0.0-2.0); EOSINOPHILS % 0.5 % (0.0-5.0); HEMOGLOBIN. 10.9 g/dL (14.0-18.0); LYMPHOCYTES % 9.2 % (20.0-50.0); MEAN CORPUSCULAR HEMOGLOBIN 29.1 pg (28.0-32.0); MEAN CORPUSCULAR VOLUME 85.5 fL (80.0-94.0); MEAN PLATELET VOLUME 9.8 fl (7.4-10.4); MONOCYTES % 10.7 % (2.0-8.0); NEUTROPHILS % 79.2 % (40.0-76.0); PLATELET 359 x1000/uL (130-400); RED BLOOD CELL COUNT 3.74 mill/uL (4.7-6.1); RED CELL DISTRIBUTION WIDTH 13.9 % (11.6-14.6)
[2020-05-30] MEDS: DIPHENHYDRAMINE 50MG/ML VIAL IV PRN ×2 (06:29→22:12)
[2020-05-30] MEDS: ONDANSETRON HCL 4MG/2ML INJ IV PRN ×2 (06:29→22:13)
[2020-05-30 06:37] LABS: CHLORIDE 106 mEq/L (98-107)
[2020-05-30] MEDS: AMLODIPINE 10MG TABLET NG SCH ×2 (08:41→21:00)
[2020-05-30] MEDS: RISPERIDONE 0.5MG TABLET PO SCH ×2 (08:41→21:00)
[2020-05-30] MEDS: LEVETIRACETAM 500MG TABLET PO SCH ×2 (08:42→21:00)
[2020-05-30] MEDS: LISINOPRIL 10MG TABLET PO SCH ×2 (08:42→21:00)
[2020-05-30] MEDS: METOPROLOL TARTRATE 100MG TABLET NG SCH ×2 (08:42→21:00)
[2020-05-30] MEDS: SODIUM CHLORIDE 0.45% 1,000 ML IV SCH ×2 (08:44→19:15)
[2020-05-30] MEDS: DOCUSATE SODIUM SUGAR FREE 100MG/10ML UDC NG SCH (12:48)
[2020-05-30] MEDS: ACETAMINOPHEN 325MG TABLET PO PRN (13:58)
[2020-05-30] MEDS: ATORVASTATIN CALCIUM 40MG TABLET NG SCH (21:00)
[2020-05-30] MEDS: HALOPERIDOL LACTATE 5MG/ML VIAL IM PRN (22:40)
[2020-05-31] VITALS (13 sets, daily range): BP systolic 119–151; BP diastolic 69–98
[2020-05-31] MEDS: SODIUM CHLORIDE 0.45% 1,000 ML IV SCH (03:00)
[2020-05-31] MEDS: ONDANSETRON HCL 4MG/2ML INJ IV PRN ×2 (04:21→20:20)
[2020-05-31] MEDS: DIPHENHYDRAMINE 50MG/ML VIAL IV PRN ×2 (04:21→20:20)
[2020-05-31] MEDS: DOCUSATE SODIUM SUGAR FREE 100MG/10ML UDC NG SCH (09:00)
[2020-05-31] MEDS: RISPERIDONE 0.5MG TABLET PO SCH ×2 (09:15→20:20)
[2020-05-31] MEDS: LEVETIRACETAM 500MG TABLET PO SCH ×2 (09:15→20:19)
[2020-05-31] MEDS: AMLODIPINE 10MG TABLET NG SCH ×2 (09:20→20:19)
[2020-05-31] MEDS: METOPROLOL TARTRATE 100MG TABLET NG SCH ×2 (09:20→20:19)
[2020-05-31] MEDS: LISINOPRIL 10MG TABLET PO SCH ×2 (09:21→20:20)
[2020-05-31] MEDS ORDERED: HALOPERIDOL LACTATE 5MG/ML VIAL IM NR (13:00)
[2020-05-31] MEDS: HALOPERIDOL LACTATE 5MG/ML VIAL IM PRN (13:02)
[2020-05-31 17:02] LABS: BASOPHILS % 0.8 % (0.0-2.0); CHLORIDE 104 mEq/L (98-107); EOSINOPHILS % 0.7 % (0.0-5.0); HEMATOCRIT. 31.2 % (42.0-52.0); HEMOGLOBIN. 10.5 g/dL (14.0-18.0); MEAN CORPUSCULAR HEMOGLOBIN 28.9 pg (28.0-32.0); MEAN CORPUSCULAR VOLUME 85.3 fL (80.0-94.0); MONOCYTES % 10.8 % (2.0-8.0); NEUTROPHILS % 78.7 % (40.0-76.0); PLATELET 424 x1000/uL (130-400); RED BLOOD CELL COUNT 3.65 mill/uL (4.7-6.1); RED CELL DISTRIBUTION WIDTH 14.1 % (11.6-14.6)
[2020-05-31] MEDS: ATORVASTATIN CALCIUM 40MG TABLET NG SCH (20:20)
[2020-05-31] MEDS ORDERED: RISPERIDONE 0.5MG TABLET PO SCH (21:00)
[2020-06-01] VITALS (11 sets, daily range): BP systolic 111–158; BP diastolic 73–96
[2020-06-01] MEDS: ONDANSETRON HCL 4MG/2ML INJ IV PRN (01:38)
[2020-06-01] MEDS: HALOPERIDOL LACTATE 5MG/ML VIAL IM PRN (01:38)
[2020-06-01] MEDS: DIPHENHYDRAMINE 50MG/ML VIAL IV PRN (01:38)
[2020-06-01] MEDS: SODIUM CHLORIDE 0.45% 1,000 ML IV SCH ×2 (05:14→21:24)
[2020-06-01] MEDS: DOCUSATE SODIUM SUGAR FREE 100MG/10ML UDC NG SCH (10:28)
[2020-06-01] MEDS: METOPROLOL TARTRATE 100MG TABLET NG SCH ×2 (10:28→21:23)
[2020-06-01] MEDS: RISPERIDONE 0.5MG TABLET PO SCH ×2 (10:29→21:23)
[2020-06-01] MEDS: LISINOPRIL 10MG TABLET PO SCH ×2 (10:29→21:23)
[2020-06-01] MEDS: AMLODIPINE 10MG TABLET NG SCH ×2 (10:29→21:23)
[2020-06-01] MEDS: LEVETIRACETAM 500MG TABLET PO SCH ×2 (10:29→21:23)
[2020-06-01] MEDS: ATORVASTATIN CALCIUM 40MG TABLET NG SCH (21:24)
[2020-06-02] VITALS (12 sets, daily range): BP systolic 110–144; BP diastolic 72–105
[2020-06-02] MEDS: DOCUSATE SODIUM SUGAR FREE 100MG/10ML UDC NG SCH (09:00)
[2020-06-02] MEDS: RISPERIDONE 0.5MG TABLET PO SCH (09:11)
[2020-06-02] MEDS: LEVETIRACETAM 500MG TABLET PO SCH ×2 (09:11→20:02)
[2020-06-02] MEDS: METOPROLOL TARTRATE 100MG TABLET NG SCH ×2 (09:11→20:02)
[2020-06-02] MEDS: LISINOPRIL 10MG TABLET PO SCH ×2 (09:12→20:02)
[2020-06-02] MEDS: AMLODIPINE 10MG TABLET NG SCH ×2 (09:12→20:02)
[2020-06-02] MEDS: DIPHENHYDRAMINE 50MG/ML VIAL IV PRN ×2 (09:12→23:48)
[2020-06-02] MEDS: SODIUM CHLORIDE 0.45% 1,000 ML IV SCH (13:45)
[2020-06-02] MEDS: ATORVASTATIN CALCIUM 40MG TABLET NG SCH (20:02)
[2020-06-02] MEDS: RISPERIDONE 1MG TABLET PO SCH (20:02)
[2020-06-02] MEDS: ONDANSETRON HCL 4MG/2ML INJ IV PRN (23:48)
[2020-06-03] VITALS (11 sets, daily range): BP systolic 105–161; BP diastolic 75–104
[2020-06-03] MEDS: HALOPERIDOL LACTATE 5MG/ML VIAL IM PRN (01:18)
[2020-06-03] MEDS: DOCUSATE SODIUM SUGAR FREE 100MG/10ML UDC NG SCH (09:00)
[2020-06-03] MEDS: LEVETIRACETAM 500MG TABLET PO SCH ×2 (09:25→20:33)
[2020-06-03] MEDS: RISPERIDONE 1MG TABLET PO SCH ×2 (09:25→20:32)
[2020-06-03] MEDS: METOPROLOL TARTRATE 100MG TABLET NG SCH ×2 (09:25→20:33)
[2020-06-03] MEDS: LISINOPRIL 10MG TABLET PO SCH ×2 (09:25→20:32)
[2020-06-03] MEDS: AMLODIPINE 10MG TABLET NG SCH ×2 (09:26→20:32)
[2020-06-03] MEDS: DIPHENHYDRAMINE 50MG/ML VIAL IV PRN ×2 (09:26→22:35)
[2020-06-03] MEDS: ATORVASTATIN CALCIUM 40MG TABLET NG SCH (20:31)
[2020-06-03] MEDS: SODIUM CHLORIDE 0.45% 1,000 ML IV SCH (20:34)
[2020-06-03] MEDS: ONDANSETRON HCL 4MG/2ML INJ IV PRN (22:35)
[2020-06-04] VITALS (13 sets, daily range): BP systolic 100–164; BP diastolic 69–111
[2020-06-04] MEDS: SODIUM CHLORIDE 0.45% 1,000 ML IV SCH (00:10)
[2020-06-04] MEDS: LISINOPRIL 10MG TABLET PO SCH ×2 (08:25→20:24)
[2020-06-04] MEDS: AMLODIPINE 10MG TABLET NG SCH ×2 (08:26→20:24)
[2020-06-04] MEDS: RISPERIDONE 1MG TABLET PO SCH ×2 (08:26→20:23)
[2020-06-04] MEDS: METOPROLOL TARTRATE 100MG TABLET NG SCH ×2 (08:26→20:25)
[2020-06-04] MEDS: DOCUSATE SODIUM SUGAR FREE 100MG/10ML UDC NG SCH ×2 (08:27→08:34)
[2020-06-04] MEDS: LEVETIRACETAM 500MG TABLET PO SCH ×2 (08:27→20:24)
[2020-06-04 08:50] LABS: BASOPHILS % 0.6 % (0.0-2.0); EOSINOPHILS % 0.9 % (0.0-5.0); HEMATOCRIT. 33.2 % (42.0-52.0); HEMOGLOBIN. 11.3 g/dL (14.0-18.0); LYMPHOCYTES % 11.8 % (20.0-50.0); MEAN CORPUSCULAR VOLUME 85.2 fL (80.0-94.0); MEAN PLATELET VOLUME 8.2 fl (7.4-10.4); MONOCYTES % 8.2 % (2.0-8.0); NEUTROPHILS % 78.5 % (40.0-76.0); PLATELET 485 x1000/uL (130-400); RED CELL DISTRIBUTION WIDTH 13.9 % (11.6-14.6)
[2020-06-04 08:54] LABS: CHLORIDE 105 mEq/L (98-107)
[2020-06-04] MEDS: ATORVASTATIN CALCIUM 40MG TABLET NG SCH (20:23)
[2020-06-04] MEDS: LORAZEPAM 0.5MG TABLET PO PRN (20:24)
[2020-06-04] MEDS: HALOPERIDOL LACTATE 5MG/ML VIAL IM PRN (21:58)
[2020-06-05] VITALS (12 sets, daily range): BP systolic 89–138; BP diastolic 59–89
[2020-06-05] MEDS: SODIUM CHLORIDE 0.45% 1,000 ML IV SCH (00:15)
[2020-06-05] MEDS: RISPERIDONE 1MG TABLET PO SCH ×2 (08:41→21:47)
[2020-06-05] MEDS: DOCUSATE SODIUM SUGAR FREE 100MG/10ML UDC NG SCH (08:41)
[2020-06-05] MEDS: METOPROLOL TARTRATE 100MG TABLET NG SCH ×2 (08:42→20:40)
[2020-06-05] MEDS: LEVETIRACETAM 500MG TABLET PO SCH ×2 (08:42→21:47)
[2020-06-05] MEDS: LISINOPRIL 10MG TABLET PO SCH ×2 (08:42→20:41)
[2020-06-05] MEDS: AMLODIPINE 10MG TABLET NG SCH ×2 (08:43→20:41)
[2020-06-05] MEDS: ATORVASTATIN CALCIUM 40MG TABLET NG SCH (21:47)
[2020-06-06] VITALS (12 sets, daily range): BP systolic 105–140; BP diastolic 75–96
[2020-06-06] MEDS: LORAZEPAM 0.5MG TABLET PO PRN ×2 (00:31→16:38)
[2020-06-06] MEDS: DOCUSATE SODIUM SUGAR FREE 100MG/10ML UDC NG SCH (08:01)
[2020-06-06] MEDS: AMLODIPINE 10MG TABLET NG SCH ×2 (08:02→19:51)
[2020-06-06] MEDS: METOPROLOL TARTRATE 100MG TABLET NG SCH ×2 (08:02→19:51)
[2020-06-06] MEDS: RISPERIDONE 1MG TABLET PO SCH ×2 (08:02→19:52)
[2020-06-06] MEDS: LEVETIRACETAM 500MG TABLET PO SCH ×2 (08:02→19:51)
[2020-06-06] MEDS: LISINOPRIL 10MG TABLET PO SCH ×2 (08:03→19:52)
[2020-06-06 11:08] LABS: BASOPHILS % 0.9 % (0.0-2.0); EOSINOPHILS % 1.1 % (0.0-5.0); HEMATOCRIT. 31.6 % (42.0-52.0); HEMOGLOBIN. 10.7 g/dL (14.0-18.0); LYMPHOCYTES % 11.2 % (20.0-50.0); MEAN CORPUSCULAR HEMOGLOBIN 29.3 pg (28.0-32.0); MEAN CORPUSCULAR VOLUME 86.1 fL (80.0-94.0); MEAN PLATELET VOLUME 8.1 fl (7.4-10.4); MONOCYTES % 8.2 % (2.0-8.0); NEUTROPHILS % 78.6 % (40.0-76.0); PLATELET 424 x1000/uL (130-400); RED BLOOD CELL COUNT 3.67 mill/uL (4.7-6.1); RED CELL DISTRIBUTION WIDTH 13.7 % (11.6-14.6)
[2020-06-06 11:13] LABS: CHLORIDE 104 mEq/L (98-107)
[2020-06-06] MEDS: SODIUM CHLORIDE 0.45% 1,000 ML IV SCH ×3 (11:15→19:49)
[2020-06-06] MEDS: ATORVASTATIN CALCIUM 40MG TABLET NG SCH (19:50)
[2020-06-06] MEDS: DIPHENHYDRAMINE 50MG/ML VIAL IV PRN (23:55)
[2020-06-07] VITALS (12 sets, daily range): BP systolic 105–162; BP diastolic 52–111
[2020-06-07] MEDS: LORAZEPAM 0.5MG TABLET PO PRN ×2 (00:01→22:12)
[2020-06-07] MEDS: HALOPERIDOL LACTATE 5MG/ML VIAL IM PRN (00:51)
[2020-06-07] MEDS: HYDRALAZINE 20MG/ML VIAL IV PRN (04:07)
[2020-06-07] MEDS: DIPHENHYDRAMINE 50MG/ML VIAL IV PRN ×3 (05:01→22:21)
[2020-06-07] MEDS: AMLODIPINE 10MG TABLET NG SCH ×2 (09:00→21:09)
[2020-06-07] MEDS: DOCUSATE SODIUM SUGAR FREE 100MG/10ML UDC NG SCH (09:03)
[2020-06-07] MEDS: RISPERIDONE 1MG TABLET PO SCH ×2 (09:03→20:37)
[2020-06-07] MEDS: METOPROLOL TARTRATE 100MG TABLET NG SCH ×2 (09:03→21:09)
[2020-06-07] MEDS: LEVETIRACETAM 500MG TABLET PO SCH ×2 (09:03→20:36)
[2020-06-07] MEDS: LISINOPRIL 10MG TABLET PO SCH ×2 (09:03→21:09)
[2020-06-07] MEDS: SODIUM CHLORIDE 0.45% 1,000 ML IV SCH (15:27)
[2020-06-07] MEDS: ATORVASTATIN CALCIUM 40MG TABLET NG SCH (20:37)
[2020-06-07] MEDS: ONDANSETRON HCL 4MG/2ML INJ IV PRN (22:14)
[2020-06-08] VITALS (13 sets, daily range): BP systolic 97–142; BP diastolic 69–97
[2020-06-08] MEDS: DIPHENHYDRAMINE 50MG/ML VIAL IV PRN ×3 (01:16→21:51)
[2020-06-08] MEDS: ONDANSETRON HCL 4MG/2ML INJ IV PRN ×3 (01:16→21:51)
[2020-06-08] MEDS: SODIUM CHLORIDE 0.45% 1,000 ML IV SCH ×2 (01:24→16:31)
[2020-06-08 06:19] LABS: BASOPHILS % 0.7 % (0.0-2.0); EOSINOPHILS % 1.6 % (0.0-5.0); HEMATOCRIT. 33.4 % (42.0-52.0); HEMOGLOBIN. 11.2 g/dL (14.0-18.0); LYMPHOCYTES % 16.9 % (20.0-50.0); MEAN CORPUSCULAR HEMOGLOBIN 28.9 pg (28.0-32.0); MEAN CORPUSCULAR VOLUME 85.9 fL (80.0-94.0); MEAN PLATELET VOLUME 8.9 fl (7.4-10.4); MONOCYTES % 8.6 % (2.0-8.0); NEUTROPHILS % 72.2 % (40.0-76.0); PLATELET 406 x1000/uL (130-400); RED BLOOD CELL COUNT 3.88 mill/uL (4.7-6.1); RED CELL DISTRIBUTION WIDTH 14.1 % (11.6-14.6)
[2020-06-08 08:08] LABS: CHLORIDE 105 mEq/L (98-107)
[2020-06-08] MEDS: LEVETIRACETAM 500MG TABLET PO SCH ×2 (09:12→20:28)
[2020-06-08] MEDS: LISINOPRIL 10MG TABLET PO SCH ×2 (09:12→20:29)
[2020-06-08] MEDS: DOCUSATE SODIUM SUGAR FREE 100MG/10ML UDC NG SCH (09:12)
[2020-06-08] MEDS: AMLODIPINE 10MG TABLET NG SCH ×2 (09:13→20:28)
[2020-06-08] MEDS: METOPROLOL TARTRATE 100MG TABLET NG SCH ×2 (09:13→21:51)
[2020-06-08] MEDS: RISPERIDONE 1MG TABLET PO SCH ×2 (09:20→20:28)
[2020-06-08] MEDS: ATORVASTATIN CALCIUM 40MG TABLET NG SCH (20:28)
[2020-06-09] VITALS (12 sets, daily range): BP systolic 81–160; BP diastolic 54–87
[2020-06-09] MEDS: HALOPERIDOL LACTATE 5MG/ML VIAL IM PRN ×3 (00:08→18:56)
[2020-06-09] MEDS: DIPHENHYDRAMINE 50MG/ML VIAL IV PRN ×3 (01:55→19:02)
[2020-06-09] MEDS: ONDANSETRON HCL 4MG/2ML INJ IV PRN ×2 (01:56→21:44)
[2020-06-09] MEDS: LORAZEPAM 2MG/ML CPJ IV PRN ×2 (08:30→18:56)
[2020-06-09] MEDS: LISINOPRIL 10MG TABLET PO SCH ×2 (09:05→20:08)
[2020-06-09] MEDS: RISPERIDONE 1MG TABLET PO SCH ×2 (09:06→20:07)
[2020-06-09] MEDS: METOPROLOL TARTRATE 100MG TABLET NG SCH ×2 (09:06→20:07)
[2020-06-09] MEDS: AMLODIPINE 10MG TABLET NG SCH ×2 (09:06→20:08)
[2020-06-09] MEDS: LEVETIRACETAM 500MG TABLET PO SCH ×2 (09:06→20:07)
[2020-06-09] MEDS: DOCUSATE SODIUM SUGAR FREE 100MG/10ML UDC NG SCH (09:07)
[2020-06-09] MEDS: ATORVASTATIN CALCIUM 40MG TABLET NG SCH (20:07)
[2020-06-10] VITALS (12 sets, daily range): BP systolic 98–127; BP diastolic 69–97
[2020-06-10] MEDS: LORAZEPAM 2MG/ML CPJ IV PRN ×2 (00:25→21:19)
[2020-06-10] MEDS: DIPHENHYDRAMINE 50MG/ML VIAL IV PRN ×2 (00:25→20:14)
[2020-06-10] MEDS: DOCUSATE SODIUM SUGAR FREE 100MG/10ML UDC NG SCH (09:45)
[2020-06-10] MEDS: METOPROLOL TARTRATE 100MG TABLET NG SCH ×2 (09:49→21:19)
[2020-06-10] MEDS: AMLODIPINE 10MG TABLET NG SCH ×2 (09:49→20:37)
[2020-06-10] MEDS: RISPERIDONE 1MG TABLET PO SCH ×2 (09:49→20:15)
[2020-06-10] MEDS: LISINOPRIL 10MG TABLET PO SCH ×2 (09:49→20:38)
[2020-06-10] MEDS: LEVETIRACETAM 500MG TABLET PO SCH ×2 (09:49→20:15)
[2020-06-10] MEDS: ONDANSETRON HCL 4MG/2ML INJ IV PRN (20:14)
[2020-06-10] MEDS: ATORVASTATIN CALCIUM 40MG TABLET NG SCH (20:15)
[2020-06-11] VITALS (12 sets, daily range): BP systolic 91–137; BP diastolic 62–89
[2020-06-11] MEDS: DIPHENHYDRAMINE 50MG/ML VIAL IV PRN ×2 (00:54→22:52)
[2020-06-11] MEDS: ONDANSETRON HCL 4MG/2ML INJ IV PRN (00:54)
[2020-06-11] MEDS: LORAZEPAM 2MG/ML CPJ IV PRN ×4 (01:44→22:53)
[2020-06-11] MEDS: RISPERIDONE 1MG TABLET PO SCH ×2 (08:15→22:51)
[2020-06-11] MEDS: METOPROLOL TARTRATE 100MG TABLET NG SCH ×2 (08:16→22:50)
[2020-06-11] MEDS: AMLODIPINE 10MG TABLET NG SCH ×2 (08:17→22:51)
[2020-06-11] MEDS: LISINOPRIL 10MG TABLET PO SCH ×2 (08:18→22:51)
[2020-06-11] MEDS: LEVETIRACETAM 500MG TABLET PO SCH ×2 (08:18→22:51)
[2020-06-11] MEDS: DOCUSATE SODIUM SUGAR FREE 100MG/10ML UDC NG SCH (08:19)
[2020-06-11] MEDS: CLONAZEPAM 0.5MG TABLET PO SCH (20:45)
[2020-06-11] MEDS: ATORVASTATIN CALCIUM 40MG TABLET NG SCH (22:51)
[2020-06-12] VITALS (12 sets, daily range): BP systolic 102–136; BP diastolic 31–97
[2020-06-12] MEDS: LORAZEPAM 2MG/ML CPJ IV PRN ×2 (02:30→17:58)
[2020-06-12] MEDS: LEVETIRACETAM 500MG TABLET PO SCH ×2 (08:36→20:29)
[2020-06-12] MEDS: DOCUSATE SODIUM SUGAR FREE 100MG/10ML UDC NG SCH (08:36)
[2020-06-12] MEDS: RISPERIDONE 1MG TABLET PO SCH ×2 (08:39→20:30)
[2020-06-12] MEDS: CLONAZEPAM 0.5MG TABLET PO SCH (08:39)
[2020-06-12] MEDS: AMLODIPINE 10MG TABLET NG SCH ×2 (09:00→20:30)
[2020-06-12] MEDS: METOPROLOL TARTRATE 100MG TABLET NG SCH ×2 (09:00→20:30)
[2020-06-12] MEDS: LISINOPRIL 10MG TABLET PO SCH ×2 (09:00→21:00)
[2020-06-12] MEDS: CLONAZEPAM 1MG TABLET PO SCH (20:29)
[2020-06-12] MEDS: ATORVASTATIN CALCIUM 40MG TABLET NG SCH (20:29)
[2020-06-13] VITALS (12 sets, daily range): BP systolic 106–145; BP diastolic 69–92
[2020-06-13] MEDS: METOPROLOL TARTRATE 100MG TABLET NG SCH ×2 (08:49→20:58)
[2020-06-13] MEDS: AMLODIPINE 10MG TABLET NG SCH ×2 (08:50→21:21)
[2020-06-13] MEDS: LISINOPRIL 10MG TABLET PO SCH ×2 (08:50→21:21)
[2020-06-13] MEDS: RISPERIDONE 1MG TABLET PO SCH ×2 (08:51→20:58)
[2020-06-13] MEDS: DOCUSATE SODIUM SUGAR FREE 100MG/10ML UDC NG SCH (08:51)
[2020-06-13] MEDS: LEVETIRACETAM 500MG TABLET PO SCH ×2 (08:51→20:57)
[2020-06-13] MEDS: CLONAZEPAM 0.5MG TABLET PO SCH (08:57)
[2020-06-13] MEDS: LORAZEPAM 2MG/ML CPJ IV PRN (09:43)
[2020-06-13] MEDS: CLONAZEPAM 1MG TABLET PO SCH (20:57)
[2020-06-13] MEDS: ATORVASTATIN CALCIUM 40MG TABLET NG SCH (20:58)
[2020-06-14] VITALS (11 sets, daily range): BP systolic 80–127; BP diastolic 52–98
[2020-06-14] MEDS: LORAZEPAM 2MG/ML CPJ IV PRN (01:56)
[2020-06-14] MEDS: HALOPERIDOL LACTATE 5MG/ML VIAL IM PRN ×2 (02:15→15:07)
[2020-06-14] MEDS: DOCUSATE SODIUM SUGAR FREE 100MG/10ML UDC NG SCH (07:51)
[2020-06-14] MEDS: CLONAZEPAM 0.5MG TABLET PO SCH ×2 (07:52→20:57)
[2020-06-14] MEDS: RISPERIDONE 1MG TABLET PO SCH ×2 (07:52→20:58)
[2020-06-14] MEDS: LISINOPRIL 10MG TABLET PO SCH ×2 (09:00→21:00)
[2020-06-14] MEDS: AMLODIPINE 10MG TABLET NG SCH ×2 (09:00→20:58)
[2020-06-14] MEDS: LEVETIRACETAM 500MG TABLET PO SCH ×2 (09:40→20:58)
[2020-06-14] MEDS: METOPROLOL TARTRATE 100MG TABLET NG SCH ×2 (09:52→20:58)
[2020-06-14] MEDS: ATORVASTATIN CALCIUM 40MG TABLET NG SCH (20:58)
[2020-06-15] VITALS: BP 121/86
[2020-06-15] MEDS: HALOPERIDOL LACTATE 5MG/ML VIAL IM PRN ×2 (03:29→19:18)
[2020-06-15 04:00] VITALS: BP 118/90
[2020-06-15 08:00] VITALS: BP 130/84
[2020-06-15] MEDS: AMLODIPINE 10MG TABLET NG SCH ×2 (09:00→21:00)
[2020-06-15] MEDS: LISINOPRIL 10MG TABLET PO SCH ×2 (09:00→21:00)
[2020-06-15] MEDS: DOCUSATE SODIUM SUGAR FREE 100MG/10ML UDC NG SCH (09:00)
[2020-06-15] MEDS: METOPROLOL TARTRATE 100MG TABLET NG SCH ×2 (09:00→21:00)
[2020-06-15] MEDS: RISPERIDONE 1MG TABLET PO SCH ×2 (09:13→21:54)
[2020-06-15] MEDS: LEVETIRACETAM 500MG TABLET PO SCH ×2 (09:14→21:53)
[2020-06-15] MEDS: CLONAZEPAM 0.5MG TABLET PO SCH ×2 (09:15→21:52)
[2020-06-15 12:00] VITALS: BP 85/53
[2020-06-15 16:00] VITALS: BP 91/60
[2020-06-15 20:00] VITALS: BP 108/68
[2020-06-15] MEDS: ATORVASTATIN CALCIUM 40MG TABLET NG SCH (21:56)
[2020-06-16] VITALS: BP 99/68
[2020-06-16 04:00] VITALS: BP 121/74
[2020-06-16 06:25] LABS: CHLORIDE 102 mEq/L (98-107)
[2020-06-16 06:26] LABS: BASOPHILS % 0.5 % (0.0-2.0); EOSINOPHILS % 2.2 % (0.0-5.0); HEMATOCRIT. 27.8 % (42.0-52.0); HEMOGLOBIN. 9.5 g/dL (14.0-18.0); MEAN CORPUSCULAR HEMOGLOBIN 29.5 pg (28.0-32.0); MEAN CORPUSCULAR VOLUME 85.9 fL (80.0-94.0); MEAN PLATELET VOLUME 8.4 fl (7.4-10.4); MONOCYTES % 12.4 % (2.0-8.0); NEUTROPHILS % 65.9 % (40.0-76.0); PLATELET 241 x1000/uL (130-400); RED BLOOD CELL COUNT 3.23 mill/uL (4.7-6.1); RED CELL DISTRIBUTION WIDTH 13.9 % (11.6-14.6)
[2020-06-16 08:00] VITALS: BP 125/86
[2020-06-16] MEDS: RISPERIDONE 1MG TABLET PO SCH ×2 (09:08→20:17)
[2020-06-16] MEDS: LEVETIRACETAM 500MG TABLET PO SCH ×2 (09:08→20:16)
[2020-06-16] MEDS: AMLODIPINE 10MG TABLET NG SCH ×2 (09:08→20:16)
[2020-06-16] MEDS: CLONAZEPAM 0.5MG TABLET PO SCH ×2 (09:08→20:16)
[2020-06-16] MEDS: METOPROLOL TARTRATE 100MG TABLET NG SCH ×2 (09:09→20:15)
[2020-06-16] MEDS: DOCUSATE SODIUM SUGAR FREE 100MG/10ML UDC NG SCH (09:09)
[2020-06-16] MEDS: LISINOPRIL 10MG TABLET PO SCH ×2 (09:09→20:17)
[2020-06-16 12:00] VITALS: BP 127/87
[2020-06-16 16:00] VITALS: BP 128/89
[2020-06-16 20:00] VITALS: BP 102/63
[2020-06-16] MEDS: ATORVASTATIN CALCIUM 40MG TABLET NG SCH (20:14)
[2020-06-16] MEDS: HALOPERIDOL LACTATE 5MG/ML VIAL IM PRN (22:18)
[2020-06-17] VITALS: BP 142/83
[2020-06-17 04:00] VITALS: BP 114/56
[2020-06-17 08:00] VITALS: BP 141/98
[2020-06-17] MEDS: LISINOPRIL 10MG TABLET PO SCH (08:45)
[2020-06-17] MEDS: DOCUSATE SODIUM SUGAR FREE 100MG/10ML UDC NG SCH ×2 (08:45→08:58)
[2020-06-17] MEDS: CLONAZEPAM 0.5MG TABLET PO SCH (08:46)
[2020-06-17] MEDS: METOPROLOL TARTRATE 100MG TABLET NG SCH (08:46)
[2020-06-17] MEDS: AMLODIPINE 10MG TABLET NG SCH (08:47)
[2020-06-17] MEDS: RISPERIDONE 1MG TABLET PO SCH (08:47)
[2020-06-17] MEDS: LEVETIRACETAM 500MG TABLET PO SCH (08:47)
[2020-06-17 12:00] VITALS: BP 119/79
[2020-06-17 14:56] VITALS: BP 101/63
[2020-06-17 16:00] VITALS: BP 101/63
== END 2020-06-17 19:27 | disposition home health service (06) | DRG 23 ==
LOC: ER 20:30 → MICUNO 05-15 00:15 → EDBD 05-15 00:15 → EDBEDREQSVC 05-15 00:17 → EDBEDREQDT 05-15 00:17 → EDBEDREQ 05-15 00:17 → EDBEDREQTM 05-15 00:17 → CVICU 05-25 14:27 → 5EST 05-28 16:23 → 6EST 06-15 12:14
PROVIDERS: ADMIT Internal Medicine; ATTEND Internal Medicine
PROC: 009630Z Drainage of Cerebral Ventricle with Drainage Device, Percutaneous Approach (ICD-10-PCS; principal; 2020-05-15)
PROC: 5A1955Z Respiratory Ventilation, Greater than 96 Consecutive Hours (ICD-10-PCS; 2020-05-15)
PROC: 0BH17EZ Insertion of Endotracheal Airway into Trachea, Via Natural or Artificial Opening (ICD-10-PCS; 2020-05-15)
PROC: 02HV33Z Insertion of Infusion Device into Superior Vena Cava, Percutaneous Approach (ICD-10-PCS; 2020-05-17)
PROC: B5181ZA Fluoroscopy of Superior Vena Cava using Low Osmolar Contrast, Guidance (ICD-10-PCS; 2020-05-17)
PROC: B548ZZA Ultrasonography of Superior Vena Cava, Guidance (ICD-10-PCS; 2020-05-17)
DX: I61.5 Nontraumatic intracerebral hemorrhage, intraventricular (principal); J96.00 Acute respiratory failure, unspecified whether with hypoxia or hypercapnia; G93.40 Encephalopathy, unspecified; I16.1 Hypertensive emergency; G91.9 Hydrocephalus, unspecified; J84.9 Interstitial pulmonary disease, unspecified; R65.10 Systemic inflammatory response syndrome (SIRS) of non-infectious origin without acute organ dysfunction; I10 Essential (primary) hypertension; E87.6 Hypokalemia; E78.5 Hyperlipidemia, unspecified; F12.90 Cannabis use, unspecified, uncomplicated; D72.810 Lymphocytopenia; Z91.14 Patient's other noncompliance with medication regimen; Z91.19 Patient's noncompliance with other medical treatment and regimen; Z86.73 Personal history of transient ischemic attack (TIA), and cerebral infarction without residual deficits; Z79.899 Other long term (current) drug therapy
CPT/HCPCS: 36415; 36600; 70496; 71045; 76937; 80048; 80053; 80305; 80320; 81003; 82375; 82550; 82553; 82805; 82962; 83721; 83735; 84132; 84295; 84478; 84484; 85025; 92610; 93005; 93970; 94002; 94003; 94640; 97116; 97162; 97166; 97530; 97535; 99291; 99292; C1725; C9113; J0360; J0690; J1100; J1200; J1630; J1940; J1953; J2060; J2150; J2270; J2405; J2543; J2704; J3480; J3490; J7030; J7050; J7060; J7070; J7121; Q9967; G0480

== ENCOUNTER 2020-08-14 13:35 | Emergency (ER) | payer OTHER ==
[~2020-08-14] VITALS: Ht 185.4 cm; Wt 80.0 kg
[2020-08-14 15:17] LABS: BASOPHILS % 0.3 % (0.0-2.0); EOSINOPHILS % 0.2 % (0.0-5.0); HEMATOCRIT. 34.4 % (42.0-52.0); HEMOGLOBIN. 11.6 g/dL (14.0-18.0); MEAN CORPUSCULAR HEMOGLOBIN 28.6 pg (28.0-32.0); MEAN CORPUSCULAR VOLUME 84.8 fL (80.0-94.0); MEAN PLATELET VOLUME 8.3 fl (7.4-10.4); MONOCYTES % 6.8 % (2.0-8.0); NEUTROPHILS % 74.7 % (40.0-76.0); PLATELET 253 x1000/uL (130-400); RED BLOOD CELL COUNT 4.05 mill/uL (4.7-6.1); RED CELL DISTRIBUTION WIDTH 14.9 % (11.6-14.6)
[2020-08-14 15:22] LABS: CHLORIDE 104 mEq/L (98-107)
[2020-08-14 15:24] LABS: PARTIAL THROMBOPLASTIN TIME 23.5 sec (23.4-31.0); PROTHROMBIN TIME 10.4 sec (9.6-11.0)
[2020-08-14 16:20] VITALS: BP 119/74
== END 2020-08-14 16:56 | disposition home or self-care (01) ==
LOC: ER 13:35
DX: D64.9 Anemia, unspecified (principal); I10 Essential (primary) hypertension
CPT/HCPCS: 36415; 80048; 85025; 86850; 86900; 93005; 99284